=== PATIENT | female | born 1975 | race Hispanic/Latino ===

== ENCOUNTER 2021-03-09 15:38 | Inpatient (IN) | payer OTHER, MEDICARE ==
[~2021-03-09] VITALS: Ht 170.2 cm; Wt 99.8 kg
[2021-03-09] MEDS ORDERED: SODIUM CHLORIDE FLUSH 10 ML SYR INJ PRN (15:45)
[2021-03-09 16:11] LABS: BASOPHILS # (AUTO) 0.1 (0.0-0.1); BASOPHILS % 1.3 % (0.0-1.0); EOSINOPHILS # (AUTO) 0.2 (0.0-0.4); EOSINOPHILS % 2.4 % (0.0-6.0); HEMATOCRIT 36.3 % (34.2-44.1); HEMOGLOBIN 11.8 g/dL (12.0-16.0); LYMPHOCYTES % 28.7 % (18.0-39.1); MEAN CORPUSCULAR HGB CONC 32.5 g/dL (31-35); MEAN CORPUSCULAR VOLUME 89.2 fL (81-99); MONOCYTES # (AUTO) 0.4 (0.2-0.8); MONOCYTES % 5.8 % (4.4-11.3); NEUTROPHILS # (AUTO) 4.4 (2.1-6.9); NEUTROPHILS % 61.5 % (38.7-80.0); PLATELET COUNT 271 x10e3/uL (140-360); RED BLOOD COUNT 4.07 x10e6/uL (3.6-5.1); RED CELL DISTRIBUTION WIDTH 15.3 % (11.7-14.4)
[2021-03-09 16:29] LABS: ANION GAP 11.8 mmol/L (8-16); CALCIUM 8.5 mg/dL (8.4-10.2); CREATININE, SERUM 0.71 mg/dL (0.57-1.11); POTASSIUM 3.8 mmol/L (3.5-5.1)
[2021-03-09 16:33] LABS: ALANINE AMINOTRANSFERASE 21 IU/L (0-55); ALBUMIN 3.9 g/dL (3.5-5.0); ALKALINE PHOSPHATASE 61 IU/L (40-150); BILIRUBIN,DIRECT 0.2 mg/dL (0.0-0.5); LIPASE 19 U/L (8-78)
[2021-03-09 16:39] LABS: HCG,QUANTITATIVE < 1.20 mIU/mL (0-10)
[2021-03-09 16:45] VITALS: BP 107/69
[2021-03-09 17:15] VITALS: BP 107/69
[2021-03-09 17:32] VITALS: BP 107/69
[2021-03-09] MEDS: DEXTROSE 5%/LACTATED RINGERS 1,000 ML IV SCH (18:30)
[2021-03-09 20:16] VITALS: BP 103/63
[2021-03-09] MEDS: Morphine 2mg Syringe 2 MG/ML SYR IV PRN (20:52)
[2021-03-09 21:30] VITALS: BP 103/63
[2021-03-09 23:46] VITALS: BP 99/66
[2021-03-10] VITALS (7 sets, daily range): BP systolic 96–102; BP diastolic 54–72
[2021-03-10] MEDS: DEXTROSE 5%/LACTATED RINGERS 1,000 ML IV SCH ×4 (01:22→23:00)
[2021-03-10 05:44] LABS: BASOPHILS # (AUTO) 0.1 (0.0-0.1); BASOPHILS % 1.2 % (0.0-1.0); EOSINOPHILS # (AUTO) 0.2 (0.0-0.4); HEMATOCRIT 33.3 % (34.2-44.1); LYMPHOCYTES % 39.7 % (18.0-39.1); MEAN CORPUSCULAR HEMOGLOBIN 29.1 pg (28-32); MEAN CORPUSCULAR VOLUME 88.1 fL (81-99); MONOCYTES # (AUTO) 0.3 (0.2-0.8); MONOCYTES % 6.3 % (4.4-11.3); NEUTROPHILS # (AUTO) 2.5 (2.1-6.9); NEUTROPHILS % 48.4 % (38.7-80.0); PLATELET COUNT 213 x10e3/uL (140-360); RED BLOOD COUNT 3.78 x10e6/uL (3.6-5.1); RED CELL DISTRIBUTION WIDTH 15.4 % (11.7-14.4)
[2021-03-10 06:16] LABS: ALBUMIN 3.2 g/dL (3.5-5.0); ANION GAP 11.6 mmol/L (8-16); BILIRUBIN,DIRECT 0.2 mg/dL (0.0-0.5); CALCIUM 7.9 mg/dL (8.4-10.2); CREATININE, SERUM 0.65 mg/dL (0.57-1.11); POTASSIUM 3.6 mmol/L (3.5-5.1)
[2021-03-10 06:38] LABS: FERRITIN 13.62 ng/mL (4.63-204.00)
[2021-03-10] MEDS: Morphine 2mg Syringe 2 MG/ML SYR IV PRN ×3 (07:28→17:30)
[2021-03-10] MEDS: CEFTRIAXONE 1 GM in SODIUM CHLORIDE 0.9% 50ML 50 ML IV SCH (11:54)
[2021-03-10] MEDS ORDERED: DIPHENOXYLATE/ATROPINE TAB PO PRN (13:30)
[2021-03-10] MEDS ORDERED: METRONIDAZOLE 500MG/NS 100ML 100 ML IV SCH (14:00)
[2021-03-10] MEDS: METRONIDAZOLE 500 MG TAB PO SCH ×2 (17:12→22:00)
[2021-03-11 05:33] VITALS: BP 117/78
[2021-03-11] MEDS: METRONIDAZOLE 500 MG TAB PO SCH ×3 (06:00→21:48)
[2021-03-11 06:23] LABS: BASOPHILS # (AUTO) 0.1 (0.0-0.1); BASOPHILS % 0.8 % (0.0-1.0); EOSINOPHILS # (AUTO) 0.2 (0.0-0.4); EOSINOPHILS % 3.5 % (0.0-6.0); HEMATOCRIT 35.8 % (34.2-44.1); HEMOGLOBIN 11.4 g/dL (12.0-16.0); LYMPHOCYTES # (AUTO) 0.8 (1.0-3.2); LYMPHOCYTES % 12.8 % (18.0-39.1); MEAN CORPUSCULAR HEMOGLOBIN 28.7 pg (28-32); MEAN CORPUSCULAR HGB CONC 31.8 g/dL (31-35); MEAN CORPUSCULAR VOLUME 90.2 fL (81-99); MONOCYTES # (AUTO) 0.3 (0.2-0.8); MONOCYTES % 5.3 % (4.4-11.3); NEUTROPHILS # (AUTO) 4.9 (2.1-6.9); NEUTROPHILS % 77.3 % (38.7-80.0); PLATELET COUNT 220 x10e3/uL (140-360); RED BLOOD COUNT 3.97 x10e6/uL (3.6-5.1); RED CELL DISTRIBUTION WIDTH 15.3 % (11.7-14.4)
[2021-03-11 06:38] LABS: ALANINE AMINOTRANSFERASE 208 IU/L (0-55); ALBUMIN 3.3 g/dL (3.5-5.0); ALBUMIN/GLOBULIN RATIO 1.4 (0.8-2.0); ALKALINE PHOSPHATASE 119 IU/L (40-150); ANION GAP 11.3 mmol/L (8-16); BLOOD UREA NITROGEN < 5 mg/dL (7-26); CALCIUM 8.4 mg/dL (8.4-10.2); CARBON DIOXIDE 23 mmol/L (22-29); CHLORIDE 112 mmol/L (98-107); CREATININE, SERUM 0.61 mg/dL (0.57-1.11); EST GLOMERULAR FILTRATION RATE 107 ML/MIN (60-); GLUCOSE 90 mg/dL (74-118); POTASSIUM 4.3 mmol/L (3.5-5.1); SODIUM 142 mmol/L (136-145)
[2021-03-11 07:00] LABS: BUN/CREATININE RATIO 8 (6-25)
[2021-03-11 07:46] VITALS: BP 109/75
[2021-03-11] MEDS: DEXTROSE 5%/LACTATED RINGERS 1,000 ML IV SCH ×2 (08:32→17:00)
[2021-03-11] MEDS: LACTOBACILLUS ACIDOPHILUS CAPSULE PO SCH (08:35)
[2021-03-11] MEDS: CEFTRIAXONE 1 GM in SODIUM CHLORIDE 0.9% 50ML 50 ML IV SCH (08:35)
[2021-03-11] MEDS: Morphine 2mg Syringe 2 MG/ML SYR IV PRN ×4 (09:21→21:48)
[2021-03-11 09:48] LABS: WBC,FECAL (FECAL LACTOFERRIN) NEGATIVE (NEGATIVE)
[2021-03-11 11:22] VITALS: BP 100/68
[2021-03-11] MEDS ORDERED: METRONIDAZOLE500 MG PO (14:19)
[2021-03-11] MEDS ORDERED: PANTOPRAZOLE SO40 MG PO (14:19)
[2021-03-11] MEDS ORDERED: LOMOTIL TABLET1 EACH PO (14:19)
[2021-03-11] MEDS ORDERED: KETOROLAC TROME10 MG PO (14:22)
[2021-03-11 14:27] LABS: C DIFFICILE TOXIN A&B AMP PROB **POSITIVE** (NEGATIVE)
[2021-03-11] MEDS ORDERED: VANCOCIN HCL250 MG PO (14:36)
[2021-03-11] MEDS ORDERED: DEPAKOTE ER250 MG PO (15:23)
[2021-03-11] MEDS: VANCOMYCIN HCL 125 MG CAPSULE PO SCH ×2 (17:00→23:04)
[2021-03-11] MEDS: ONDANSETRON HCL INJ 2MG/ML 2ML 2 MG/ML VIAL IV PRN ×2 (17:19→21:48)
[2021-03-11 17:36] VITALS: BP 120/78
[2021-03-11 20:29] VITALS: BP 113/75
[2021-03-11 21:42] VITALS: BP 113/75
[2021-03-12] VITALS (8 sets, daily range): BP systolic 97–115; BP diastolic 62–75
[2021-03-12] MEDS: Morphine 2mg Syringe 2 MG/ML SYR IV PRN ×4 (03:50→20:05)
[2021-03-12] MEDS: ONDANSETRON HCL INJ 2MG/ML 2ML 2 MG/ML VIAL IV PRN ×4 (03:50→21:05)
[2021-03-12] MEDS: DEXTROSE 5%/LACTATED RINGERS 1,000 ML IV SCH ×2 (03:50→15:57)
[2021-03-12] MEDS: VANCOMYCIN HCL 125 MG CAPSULE PO SCH ×3 (05:19→17:53)
[2021-03-12] MEDS: METRONIDAZOLE 500 MG TAB PO SCH ×3 (05:55→21:06)
[2021-03-12 06:14] LABS: BASOPHILS # (AUTO) 0.1 (0.0-0.1); EOSINOPHILS # (AUTO) 0.3 (0.0-0.4); EOSINOPHILS % 5.8 % (0.0-6.0); HEMATOCRIT 32.2 % (34.2-44.1); HEMOGLOBIN 10.2 g/dL (12.0-16.0); LYMPHOCYTES # (AUTO) 1.3 (1.0-3.2); LYMPHOCYTES % 26.2 % (18.0-39.1); MEAN CORPUSCULAR HEMOGLOBIN 28.9 pg (28-32); MEAN CORPUSCULAR HGB CONC 31.7 g/dL (31-35); MEAN CORPUSCULAR VOLUME 91.2 fL (81-99); MONOCYTES # (AUTO) 0.4 (0.2-0.8); MONOCYTES % 7.7 % (4.4-11.3); NEUTROPHILS % 58.9 % (38.7-80.0); PLATELET COUNT 203 x10e3/uL (140-360); RED BLOOD COUNT 3.53 x10e6/uL (3.6-5.1); RED CELL DISTRIBUTION WIDTH 15.3 % (11.7-14.4)
[2021-03-12 06:46] LABS: ALANINE AMINOTRANSFERASE 387 IU/L (0-55); ALBUMIN 3.1 g/dL (3.5-5.0); ALBUMIN/GLOBULIN RATIO 1.5 (0.8-2.0); ALKALINE PHOSPHATASE 173 IU/L (40-150); ANION GAP 10.9 mmol/L (8-16); BLOOD UREA NITROGEN < 5 mg/dL (7-26); CARBON DIOXIDE 25 mmol/L (22-29); CHLORIDE 110 mmol/L (98-107); CREATININE, SERUM 0.61 mg/dL (0.57-1.11); EST GLOMERULAR FILTRATION RATE 107 ML/MIN (60-); GLUCOSE 104 mg/dL (74-118); MAGNESIUM 1.7 MG/DL (1.3-2.1); POTASSIUM 3.9 mmol/L (3.5-5.1); SODIUM 142 mmol/L (136-145)
[2021-03-12 06:49] LABS: BUN/CREATININE RATIO 8 (6-25)
[2021-03-12] MEDS: LACTOBACILLUS ACIDOPHILUS CAPSULE PO SCH (08:59)
[2021-03-12] MEDS: DIVALPROEX SODIUM 250 MG TAB...DR PO SCH ×2 (08:59→17:01)
[2021-03-12] MEDS: CEFTRIAXONE 1 GM in SODIUM CHLORIDE 0.9% 50ML 50 ML IV SCH (08:59)
[2021-03-12 12:28] LABS: HIV 1&2 AB SCREEN NON-REACTIVE (NONREACTIVE)
[2021-03-12] MEDS: ACETAMINOPHEN 325 MG TAB PO PRN ×2 (16:11→21:08)
[2021-03-13 00:29] VITALS: BP 101/73
[2021-03-13] MEDS: Morphine 2mg Syringe 2 MG/ML SYR IV PRN ×3 (00:40→10:16)
[2021-03-13] MEDS: VANCOMYCIN HCL 125 MG CAPSULE PO SCH ×3 (00:42→12:16)
[2021-03-13] MEDS: DEXTROSE 5%/LACTATED RINGERS 1,000 ML IV SCH ×3 (00:42→08:34)
[2021-03-13 04:32] VITALS: BP 100/73
[2021-03-13] MEDS: METRONIDAZOLE 500 MG TAB PO SCH (06:15)
[2021-03-13 07:22] LABS: BASOPHILS # (AUTO) 0.1 (0.0-0.1); BASOPHILS % 1.1 % (0.0-1.0); EOSINOPHILS # (AUTO) 0.2 (0.0-0.4); EOSINOPHILS % 4.9 % (0.0-6.0); HEMATOCRIT 32.9 % (34.2-44.1); HEMOGLOBIN 10.2 g/dL (12.0-16.0); LYMPHOCYTES # (AUTO) 1.3 (1.0-3.2); LYMPHOCYTES % 29.3 % (18.0-39.1); MEAN CORPUSCULAR HEMOGLOBIN 28.7 pg (28-32); MEAN CORPUSCULAR VOLUME 92.4 fL (81-99); MONOCYTES # (AUTO) 0.4 (0.2-0.8); MONOCYTES % 7.8 % (4.4-11.3); NEUTROPHILS # (AUTO) 2.6 (2.1-6.9); NEUTROPHILS % 56.7 % (38.7-80.0); PLATELET COUNT 204 x10e3/uL (140-360); RED BLOOD COUNT 3.56 x10e6/uL (3.6-5.1); RED CELL DISTRIBUTION WIDTH 15.2 % (11.7-14.4)
[2021-03-13 07:43] LABS: ALBUMIN 3.1 g/dL (3.5-5.0); ALBUMIN/GLOBULIN RATIO 1.3 (0.8-2.0); CALCIUM 8.4 mg/dL (8.4-10.2); CREATININE, SERUM 0.65 mg/dL (0.57-1.11)
[2021-03-13 08:01] VITALS: BP 103/71
[2021-03-13] MEDS: DIVALPROEX SODIUM 250 MG TAB...DR PO SCH (08:29)
[2021-03-13 08:42] VITALS: BP 103/71
[2021-03-13] MEDS: ONDANSETRON HCL INJ 2MG/ML 2ML 2 MG/ML VIAL IV PRN (10:16)
[2021-03-13] MEDS ORDERED: AUGMENTIN 875-1 EACH PO (11:14)
[2021-03-13] MEDS: ACETAMINOPHEN 325 MG TAB PO PRN (11:18)
[2021-03-13] MEDS ORDERED: PANTOPRAZOLE SO40 MG PO (11:19)
[2021-03-13] MEDS ORDERED: METRONIDAZOLE500 MG PO (11:19)
[2021-03-13] MEDS ORDERED: KETOROLAC TROME10 MG PO (11:19)
[2021-03-13] MEDS ORDERED: LOMOTIL TABLET1 EACH PO (11:19)
[2021-03-13 11:41] VITALS: BP 90/62
[2021-03-16 04:10] LABS: ENDOMYSIAL ANTIBODIES, IGA Negative (Negative)
== END 2021-03-13 13:22 | disposition home or self-care (01) | DRG 372 ==
LOC: ER 16:00 → ERHOLD 16:04 → MED/SURG 16:30 → MED/SURG3 03-11 15:35
PROVIDERS: ADMIT Internal Medicine; ATTEND Internal Medicine
DX: A04.72 Enterocolitis due to Clostridium difficile, not specified as recurrent (principal); K56.1 Intussusception; Z90.49 Acquired absence of other specified parts of digestive tract; Z98.84 Bariatric surgery status; E66.9 Obesity, unspecified; Z68.34 Body mass index [BMI] 34.0-34.9, adult; Z20.822 Contact with and (suspected) exposure to COVID-19
CPT/HCPCS: 36415; 76705; 80048; 80053; 80076; 82105; 82150; 82390; 82607; 82728; 82746; 82784; 83516; 83540; 83630; 83690; 83735; 83993; 84302; 84443; 84466; 84702; 84999; 85025; 85045; 85651; 86039; 86141; 86255; 86256; 86704; 87045; 87177; 87328; 87390; 87493; 94799; 96360; 96361; 99284; G0433; G0435; J0696; J2270; J2405; U0002

== ENCOUNTER → 2021-03-09 | Outpatient (CLI) | payer OTHER, MEDICARE ==
[~2021-03-09] MED LIST: AUGMENTIN 875-1 EACH PO; DEPAKOTE ER250 MG PO; IOPAMIDOL 370 MG/ML 200 ML INFUS..BTL INJ ONE; KETOROLAC TROME10 MG PO; LOMOTIL TABLET1 EACH PO; METRONIDAZOLE500 MG PO; PANTOPRAZOLE SO40 MG PO; SODIUM CHLORIDE 0.9% 50ML 50 ML ONE; VANCOCIN HCL250 MG PO
== END ==
LOC: CT 11:18
PROVIDERS: ATTEND Internal Medicine Gastroenterology
DX: R10.9 Unspecified abdominal pain (principal); Z98.84 Bariatric surgery status
CPT/HCPCS: 74177; Q9967

== ENCOUNTER 2021-03-17 08:57 | Emergency (ER) | payer MEDICARE, OTHER ==
[~2021-03-17] VITALS: Ht 170.2 cm; Wt 99.8 kg
[~2021-03-17 08:57] MED LIST changes: -IOPAMIDOL 370 MG/ML 200 ML INFUS..BTL INJ ONE; -SODIUM CHLORIDE 0.9% 50ML 50 ML ONE
[2021-03-17] MEDS ORDERED: ONDANSETRON HCL 4 MG ORAL DISINTEGRATING TAB ONE (09:29)
[2021-03-17] MEDS ORDERED: ONDANSETRON HCL 4 MG ORAL DISINTEGRATING TAB PO ONE (09:30)
[2021-03-17] MEDS ORDERED: LOMOTIL TABLET1 EACH PO (10:27)
[2021-03-17] MEDS ORDERED: VENLAFAXINE HCL75 M1 PO (10:28)
== END 2021-03-17 09:25 | disposition home or self-care (01) ==
LOC: ER 09:03
DX: R11.2 Nausea with vomiting, unspecified (principal); A04.72 Enterocolitis due to Clostridium difficile, not specified as recurrent; Z98.84 Bariatric surgery status; F17.210 Nicotine dependence, cigarettes, uncomplicated
CPT/HCPCS: 99283; Q0162

== ENCOUNTER 2021-03-19 11:21 | Emergency (ER) | payer MEDICARE, OTHER ==
[~2021-03-19] VITALS: Ht 170.2 cm; Wt 99.8 kg
[~2021-03-19 11:21] MED LIST changes: +VENLAFAXINE HCL75 M1 PO
[2021-03-19 12:24] LABS: CLARITY,URINE CLEAR (CLEAR); COLOR,URINE YELLOW (YELLOW)
[2021-03-19 12:25] LABS: KETONES,URINE NEGATIVE (NEGATIVE); LEUKOCYTE ESTERASE ,URINE TRACE (NEGATIVE); NITRITE,URINE NEGATIVE (NEGATIVE); PROTEIN,URINE DIPSTICK NEGATIVE (NEGATIVE); URINE UROBILINOGEN 0.2 mg/dL (0.2 - 1)
[2021-03-19 12:32] LABS: BACTERIA,URINE MODERATE /HPF; EPITHELIAL CELLS,URINE MANY /LPF
[2021-03-19] MEDS ORDERED: CEPHALEXIN500 MG PO (12:57)
== END 2021-03-19 13:03 | disposition home or self-care (01) ==
LOC: ER 11:31
DX: N89.8 Other specified noninflammatory disorders of vagina (principal); N39.0 Urinary tract infection, site not specified
CPT/HCPCS: 81001; 81025; 99283

== ENCOUNTER 2021-06-15 09:37 | Emergency (ER) | payer MEDICARE, OTHER ==
[~2021-06-15] VITALS: Ht 170.2 cm; Wt 99.8 kg
[~2021-06-15 09:37] MED LIST changes: +CEPHALEXIN500 MG PO
[2021-06-15 10:43] LABS: BASOPHILS # (AUTO) 0.1 (0.0-0.1); BASOPHILS % 0.6 % (0.0-1.0); EOSINOPHILS # (AUTO) 0.1 (0.0-0.4); EOSINOPHILS % 0.7 % (0.0-6.0); HEMATOCRIT 41.5 % (34.2-44.1); HEMOGLOBIN 13.7 g/dL (12.0-16.0); LYMPHOCYTES # (AUTO) 1.2 (1.0-3.2); LYMPHOCYTES % 14.2 % (18.0-39.1); MEAN CORPUSCULAR HEMOGLOBIN 30.1 pg (28-32); MEAN CORPUSCULAR VOLUME 91.2 fL (81-99); MONOCYTES # (AUTO) 0.5 (0.2-0.8); MONOCYTES % 5.5 % (4.4-11.3); NEUTROPHILS # (AUTO) 6.6 (2.1-6.9); NEUTROPHILS % 78.8 % (38.7-80.0); PLATELET COUNT 316 x10e3/uL (140-360); RED BLOOD COUNT 4.55 x10e6/uL (3.6-5.1); RED CELL DISTRIBUTION WIDTH 13.9 % (11.7-14.4)
[2021-06-15] MEDS ORDERED: ONDANSETRON HCL INJ 2MG/ML 2ML 2 MG/ML VIAL IV STA (10:46)
[2021-06-15] MEDS ORDERED: SODIUM CHLORIDE 0.9% 1000ML 1,000 ML IV STA (10:46)
[2021-06-15 10:49] LABS: CLARITY,URINE CLEAR (CLEAR); COLOR,URINE YELLOW (YELLOW); KETONES,URINE NEGATIVE (NEGATIVE); LEUKOCYTE ESTERASE ,URINE NEGATIVE (NEGATIVE); NITRITE,URINE NEGATIVE (NEGATIVE); PHENCYCLIDINE SCREEN,URINE NEGATIVE (NEGATIVE); PROTEIN,URINE DIPSTICK NEGATIVE (NEGATIVE)
[2021-06-15 10:50] LABS: AMPHETAMINES SCREEN,URINE NEGATIVE (NEGATIVE); BENZODIAZEPINES SCREEN,URINE NEGATIVE (NEGATIVE); URINE UROBILINOGEN 0.2 mg/dL (0.2 - 1)
[2021-06-15 11:06] LABS: BACTERIA,URINE RARE /HPF; EPITHELIAL CELLS,URINE MODERATE /LPF; MAGNESIUM 2.4 MG/DL (1.3-2.1); RBC,URINE 0-5 /HPF (0-5); WBC,URINE (MAN) 0-5 /HPF (0-5)
[2021-06-15 11:11] LABS: ALBUMIN 3.9 g/dL (3.5-5.0); ALBUMIN/GLOBULIN RATIO 1.3 (0.8-2.0); ANION GAP 10.1 mmol/L (8-16); CALCIUM 9.1 mg/dL (8.4-10.2); CREATININE, SERUM 0.71 mg/dL (0.57-1.11); POTASSIUM 4.1 mmol/L (3.5-5.1)
[2021-06-15 11:18] LABS: CREATINE KINASE MB 2.9 ng/mL (0-5.0)
[2021-06-15] MEDS ORDERED: IOPAMIDOL 370 MG/ML 200 ML INFUS..BTL INJ ONE (11:33)
[2021-06-15] MEDS ORDERED: SODIUM CHLORIDE 0.9% 50ML 50 ML ONE (11:33)
== END 2021-06-15 13:46 | disposition home or self-care (01) ==
LOC: ER 09:53
DX: R10.30 Lower abdominal pain, unspecified (principal); F15.90 Other stimulant use, unspecified, uncomplicated; I10 Essential (primary) hypertension; F41.9 Anxiety disorder, unspecified; Z20.822 Contact with and (suspected) exposure to COVID-19; Z98.84 Bariatric surgery status; F17.210 Nicotine dependence, cigarettes, uncomplicated
CPT/HCPCS: 36415; 71045; 74177; 80053; 80307; 80320; 81001; 82550; 82553; 83690; 83735; 84484; 84702; 85025; 93005; 99284; C9113; J2405; J7030; Q9967; U0002

== ENCOUNTER 2021-06-18 15:00 | Emergency (ER) | payer MEDICARE, OTHER ==
[~2021-06-18] VITALS: Ht 170.2 cm; Wt 99.8 kg
[2021-06-18] MEDS ORDERED: METOCLOPRAMIDE HCL 10 MG TAB PO NR (15:30)
[2021-06-18] MEDS ORDERED: PREDNISONE20 MG PO (15:31)
[2021-06-18] MEDS ORDERED: PEPCID20 MG PO (15:31)
[2021-06-18] MEDS ORDERED: REGLAN10 MG PO (15:31)
== END 2021-06-18 15:52 | disposition home or self-care (01) ==
LOC: ER 15:11
DX: L29.9 Pruritus, unspecified (principal); F15.90 Other stimulant use, unspecified, uncomplicated; R10.9 Unspecified abdominal pain; I10 Essential (primary) hypertension; F41.9 Anxiety disorder, unspecified; Z98.84 Bariatric surgery status
CPT/HCPCS: 99282; J8597

== ENCOUNTER 2021-06-24 12:09 | Emergency (ER) | payer MEDICARE, OTHER ==
[~2021-06-24] VITALS: Ht 170.2 cm; Wt 99.8 kg
[~2021-06-24 12:09] MED LIST changes: +PEPCID20 MG PO; +PREDNISONE20 MG PO; +REGLAN10 MG PO
[2021-06-24] MEDS ORDERED: DICYCLOMINE HCL 20 MG/2 ML VIAL IM ONE (12:45)
[2021-06-24] MEDS ORDERED: ONDANSETRON HCL INJ 2MG/ML 2ML 2 MG/ML VIAL IV PRN (12:45)
[2021-06-24 13:08] LABS: BASOPHILS # (AUTO) 0.1 (0.0-0.1); BASOPHILS % 0.6 % (0.0-1.0); EOSINOPHILS # (AUTO) 0.1 (0.0-0.4); EOSINOPHILS % 0.6 % (0.0-6.0); HEMATOCRIT 45.1 % (34.2-44.1); HEMOGLOBIN 14.6 g/dL (12.0-16.0); LYMPHOCYTES # (AUTO) 1.7 (1.0-3.2); LYMPHOCYTES % 13.8 % (18.0-39.1); MEAN CORPUSCULAR HEMOGLOBIN 29.7 pg (28-32); MEAN CORPUSCULAR HGB CONC 32.4 g/dL (31-35); MEAN CORPUSCULAR VOLUME 91.9 fL (81-99); MONOCYTES # (AUTO) 0.6 (0.2-0.8); MONOCYTES % 5.2 % (4.4-11.3); NEUTROPHILS # (AUTO) 9.8 (2.1-6.9); NEUTROPHILS % 79.5 % (38.7-80.0); PLATELET COUNT 323 x10e3/uL (140-360); RED BLOOD COUNT 4.91 x10e6/uL (3.6-5.1)
[2021-06-24 13:20] LABS: AMPHETAMINES SCREEN,URINE NEGATIVE (NEGATIVE); BENZODIAZEPINES SCREEN,URINE NEGATIVE (NEGATIVE); CLARITY,URINE CLEAR (CLEAR); COLOR,URINE YELLOW (YELLOW); KETONES,URINE TRACE (NEGATIVE); LEUKOCYTE ESTERASE ,URINE NEGATIVE (NEGATIVE); NITRITE,URINE NEGATIVE (NEGATIVE); PHENCYCLIDINE SCREEN,URINE NEGATIVE (NEGATIVE); PROTEIN,URINE DIPSTICK NEGATIVE (NEGATIVE)
[2021-06-24 13:21] LABS: URINE UROBILINOGEN 0.2 mg/dL (0.2 - 1)
[2021-06-24 13:30] LABS: ALBUMIN 3.5 g/dL (3.5-5.0); ALBUMIN/GLOBULIN RATIO 1.1 (0.8-2.0); ANION GAP 9.2 mmol/L (8-16); CALCIUM 9.1 mg/dL (8.4-10.2); CREATININE, SERUM 0.7 mg/dL (0.57-1.11); POTASSIUM 4.2 mmol/L (3.5-5.1)
[2021-06-24 13:31] LABS: AMYLASE 42 U/L (25-125); LIPASE 18 U/L (8-78)
[2021-06-24 13:39] LABS: EPITHELIAL CELLS,URINE FEW /LPF; WBC,URINE (MAN) 0-5 /HPF (0-5)
[2021-06-24] MEDS ORDERED: PANTOPRAZOLE SO40 MG PO (14:41)
[2021-06-24] MEDS ORDERED: DICYCLOMINE HCL20 MG PO (14:41)
[2021-06-24] MEDS ORDERED: REGLAN10 MG PO (14:41)
== END 2021-06-24 14:59 | disposition home or self-care (01) ==
LOC: ER 12:35
DX: R10.10 Upper abdominal pain, unspecified (principal); I10 Essential (primary) hypertension; F41.9 Anxiety disorder, unspecified; Z98.84 Bariatric surgery status
CPT/HCPCS: 36415; 74018; 76705; 80053; 80307; 81001; 82150; 83690; 84702; 85025; 99284; J0500; J2405

== ENCOUNTER → 2021-08-02 | Outpatient (CLI) | payer MEDICARE, OTHER ==
[~2021-08-02] MED LIST changes: +DICYCLOMINE HCL20 MG PO
== END ==
LOC: MAMMO 13:02
PROVIDERS: ATTEND Internal Medicine
DX: Z12.31 Encounter for screening mammogram for malignant neoplasm of breast (principal)
CPT/HCPCS: 77067

== ENCOUNTER 2021-12-08 13:41 | Emergency (ER) | payer MEDICARE, OTHER ==
[~2021-12-08] VITALS: Ht 170.2 cm; Wt 99.8 kg
[2021-12-08] MEDS ORDERED: SODIUM CHLORIDE 0.9% 1000ML 1,000 ML IV STA (14:19)
[2021-12-08] MEDS ORDERED: KETOROLAC TROMETHAMINE 30 MG/ML VIAL IV NR (14:19)
[2021-12-08 14:44] LABS: BASOPHILS # (AUTO) 0.1 (0.0-0.1); BASOPHILS % 1.1 % (0.0-1.0); EOSINOPHILS # (AUTO) 0.2 (0.0-0.4); HEMATOCRIT 42.5 % (34.2-44.1); HEMOGLOBIN 13.6 g/dL (12.0-16.0); LYMPHOCYTES # (AUTO) 1.4 (1.0-3.2); LYMPHOCYTES % 18.7 % (18.0-39.1); MEAN CORPUSCULAR HEMOGLOBIN 30.9 pg (28-32); MEAN CORPUSCULAR VOLUME 96.6 fL (81-99); MONOCYTES # (AUTO) 0.3 (0.2-0.8); MONOCYTES % 4.4 % (4.4-11.3); NEUTROPHILS # (AUTO) 5.5 (2.1-6.9); NEUTROPHILS % 73.4 % (38.7-80.0); PLATELET COUNT 312 x10e3/uL (140-360); RED CELL DISTRIBUTION WIDTH 12.8 % (11.7-14.4)
[2021-12-08 14:56] LABS: ANION GAP 15.6 mmol/L (8-16); CALCIUM 8.6 mg/dL (8.4-10.2); CREATININE, SERUM 0.66 mg/dL (0.57-1.11); POTASSIUM 4.6 mmol/L (3.5-5.1)
[2021-12-08 15:05] LABS: CLARITY,URINE CLEAR (CLEAR); COLOR,URINE YELLOW (YELLOW); KETONES,URINE NEGATIVE (NEGATIVE); LEUKOCYTE ESTERASE ,URINE NEGATIVE (NEGATIVE); NITRITE,URINE NEGATIVE (NEGATIVE); PROTEIN,URINE DIPSTICK NEGATIVE (NEGATIVE); URINE UROBILINOGEN 0.2 mg/dL (0.2 - 1)
[2021-12-08 15:15] LABS: BACTERIA,URINE MODERATE /HPF; WBC,URINE (MAN) 0-5 /HPF (0-5)
[2021-12-08 15:16] LABS: EPITHELIAL CELLS,URINE MODERATE /LPF; MUCUS,URINE FEW (RARE)
== END 2021-12-08 16:05 | disposition home or self-care (01) ==
LOC: ER 13:50
DX: R25.2 Cramp and spasm (principal); R06.02 Shortness of breath; M54.50 Low back pain, unspecified; I10 Essential (primary) hypertension; F41.9 Anxiety disorder, unspecified; Z98.84 Bariatric surgery status
CPT/HCPCS: 36415; 74176; 80048; 81001; 84702; 85025; 99284; J1885; J7030